=== PATIENT | male | born 1940 | race Caucasian/White ===

== ENCOUNTER → 2016-11-03 | Outpatient (REF) | payer MEDICARE, OTHER ==
[~2016-11-03] MED LIST: GEMF600T PO; MELA3TAB17 PO; METF1000 PO; MULTTAB4 PO; PRAD150C PO; RALT40TA PO; RAMI10CA PO; TAMS0.4C PO; TRUVTAB3 PO
[2016-11-03 14:18] LABS: ALBUMIN 4.2 GM/DL (3.2-5.2); ALKALINE PHOSPHATASE 73 U/L (45-117); ALT/SGPT 19 U/L (12-78); ANION GAP 7 MEQ/L (8-16); AST/SGOT 13 U/L (15-37); BLOOD UREA NITROGEN 21 MG/DL (7-18); CALCIUM LEVEL 9.7 MG/DL (8.8-10.2); CARBON DIOXIDE LEVEL 28 MEQ/L (21-32); CHLORIDE LEVEL 104 MEQ/L (98-107); CHOLESTEROL LEVEL 90 MG/DL (<200); CREATININE FOR GFR 1.41 MG/DL (0.70-1.30); GLUCOSE, FASTING 110 MG/DL (83-110); POTASSIUM SERUM 4.3 MEQ/L (3.5-5.1); SODIUM LEVEL 139 MEQ/L (136-145); TOTAL PROTEIN 7.7 GM/DL (6.4-8.2); TRIGLYCERIDES LEVEL 108 MG/DL (<150)
[2016-11-05 00:06] LABS: %CD3+CD4+CD8+ 5.6 % (Not Estab.); %CD3+CD4+CD8- 35.6 % (Not Estab.); %CD3+CD4-CD8+ 37.3 % (Not Estab.); %CD3+CD4-CD8- 0.5 % (Not Estab.); ABS CD3+CD4+CD8+ 84 /uL (Not Estab.); ABS CD3+CD4+CD8- 534 /uL (Not Estab.); ABS CD3+CD4-CD8+ 560 /uL (Not Estab.); ABS CD3+CD4-CD8- 8 /uL (Not Estab.); CD4/CD8 NYSDOH RATIO 0.95 (Not Estab.); Eosinophils 3 % (.); HCT 46.1 % (37.5-51.0); HGB 15.7 g/dL (12.6-17.7); Monocytes 8 % (.); Neutrophils 57 % (.); WBC 4.8 x10E3/uL (3.4-10.8)
== END ==
LOC: M LABDRAW1 12:56
PROVIDERS: ATTEND Internal Medicine Infectious Disease
DX: B20 Human immunodeficiency virus [HIV] disease (principal); E78.2 Mixed hyperlipidemia; E11.40 Type 2 diabetes mellitus with diabetic neuropathy, unspecified; K62.82 Dysplasia of anus; N40.1 Benign prostatic hyperplasia with lower urinary tract symptoms; I48.2 Chronic atrial fibrillation; R80.9 Proteinuria, unspecified; Z23 Encounter for immunization; Z79.84 Long term (current) use of oral hypoglycemic drugs; Z79.899 Other long term (current) drug therapy
CPT/HCPCS: 36415; 80053; 80061; 81001; 82043; 83036; 86360; 86480; 86780; 87491; 87536; 87591; 90471; 90733; G0463

== ENCOUNTER → 2016-12-20 | Outpatient (REF) | payer MEDICARE, OTHER | LOC: M SMT 13:19 | PROVIDERS: ATTEND Urology | DX: R30.0 Dysuria (principal) | CPT/HCPCS: 51798; 81001; 87086; G0463 ==

== ENCOUNTER → 2016-12-29 | Outpatient (CLI) | payer MEDICARE, OTHER ==
--- NOTE | 2016-12-29 10:59 | REP ---
CT LUMBAR SPINE WITHOUT CONTRAST: HISTORY: Back and right leg pain. A diffuse disc bulge with associated osteophyte formation is present at the L1-2 level. There is minimal compression of the thecal sac. The L1 nerves exit the neural foramina without compression. A diffuse disc bulge is present at the L2-3 level. There is minimal compression of the thecal sac. The L2 nerves exit the neural foramina without compression. A diffuse disc bulge is present at the L3-4 level. There is minimal compression of the thecal sac. There is hypertrophy of the posterior articulating facets. The L3 nerves exit the neural foramina without compression. A diffuse disc bulge and small right paracentral disc extrusion are present at the L4-5 level. There is inferior migration of disc material. There is minimal compression of the thecal sac and right L5 nerve as it exits the thecal sac. There is hypertrophy of the posterior articulating facets. There is compression of the right L4 nerve in the neural foramen. The left L4 nerve exits the neural foramen without compression. A diffuse disc bulge is present at the L5-S1 level. There is minimal compression of the thecal sac. There is hypertrophy of the posterior articulating facets. The L5 nerves exit the neural foramina without compression. The L1-2 and L4-5 intervertebral discs are decreased in height consistent with disc degeneration. There is an old compression fracture of the L1 vertebral body with minimal height loss. There is no subluxation. IMPRESSION: 1. Diffuse disc bulge with associated osteophyte formation at the L1-2 level with minimal thecal sac compression. 2. Diffuse disc bulges at the L2-3, L3-4 and L5-S1 levels with minimal thecal sac compression. 2. Diffuse disc bulge and small right paracentral disc extrusion at the L4-5 level with minimal compression of the thecal sac and right L5 nerve as it exits the thecal sac. There is compression of the right L5 nerve in the neural foramen. Signed by Tor Yuen MD 12/29/2016 11:19 A
== END ==
LOC: M RAD 10:18
PROVIDERS: ATTEND Physician Assistant Medical
DX: M51.26 Other intervertebral disc displacement, lumbar region (principal); M79.604 Pain in right leg; R20.2 Paresthesia of skin

== ENCOUNTER → 2017-03-08 | Outpatient (REF) | payer MEDICARE, OTHER ==
[2017-03-08 13:38] LABS: ALBUMIN/GLOBULIN RATIO 1.11 (1.00-1.93); BILIRUBIN,TOTAL 1.1 MG/DL (0.2-1.0); CALCIUM LEVEL 9.1 MG/DL (8.8-10.2); CREATININE FOR GFR 1.32 MG/DL (0.70-1.30); GLOMERULAR FILTRATION RATE 56.1 (>42); POTASSIUM SERUM 4.4 MEQ/L (3.5-5.1); TOTAL PROTEIN 7.6 GM/DL (6.4-8.2)
[2017-03-11 00:08] LABS: Eosinophils 3 % (.); HCT 45.1 % (37.5-51.0); HGB 15.1 g/dL (12.6-17.7); Monocytes 6 % (.); Neutrophils 61 % (.); WBC 4.7 x10E3/uL (3.4-10.8)
== END ==
LOC: M SFHCPLAZ 09:09
PROVIDERS: ATTEND Internal Medicine Infectious Disease
DX: B20 Human immunodeficiency virus [HIV] disease (principal); E11.40 Type 2 diabetes mellitus with diabetic neuropathy, unspecified
CPT/HCPCS: 80053; 80061; 83036; 86360; 87536; G0463

== ENCOUNTER → 2017-11-01 | Outpatient (REF) | payer MEDICARE, OTHER ==
[2017-11-01 14:32] LABS: ESTIMATED AVERAGE GLUCOSE 163 MG/DL (60-110); HEMOGLOBIN A1c 7.3 %
[2017-11-01 14:37] LABS: ALBUMIN 3.8 GM/DL (3.2-5.2); ALBUMIN/GLOBULIN RATIO 1.03 (1.00-1.93); ALKALINE PHOSPHATASE 79 U/L (45-117); ALT/SGPT 13 U/L (12-78); ANION GAP 9 MEQ/L (8-16); AST/SGOT 12 U/L (7-37); BILIRUBIN,TOTAL 1.2 MG/DL (0.2-1.0); BLOOD UREA NITROGEN 21 MG/DL (7-18); CALCIUM LEVEL 9.2 MG/DL (8.8-10.2); CARBON DIOXIDE LEVEL 26 MEQ/L (21-32); CHLORIDE LEVEL 105 MEQ/L (98-107); CHOLESTEROL LEVEL 93 MG/DL (<200); CHOLESTEROL RISK RATIO 2.735 (<5); CREATININE FOR GFR 1.31 MG/DL (0.70-1.30); GLOMERULAR FILTRATION RATE 56.5 (>42); GLUCOSE, FASTING 151 MG/DL (70-100); HDL CHOLESTEROL 34 MG/DL (>40); LDL CHOLESTEROL 32.8 MG/DL (<100); NON-HDL-C 59 MG/DL; POTASSIUM SERUM 4.4 MEQ/L (3.5-5.1); SODIUM LEVEL 140 MEQ/L (136-145); TOTAL PROTEIN 7.5 GM/DL (6.4-8.2); TRIGLYCERIDES LEVEL 131 MG/DL (<150)
[2017-11-01 16:32] LABS: APPEARANCE, URINE CLOUDY (CLEAR); BACTERIA, URINE AUTO 1+ (NEGATIVE); BILIRUBIN, URINE AUTO NEGATIVE (NEGATIVE); BLOOD, URINE BLOOD 2+ (NEGATIVE); COLOR, URINE YELLOW (YELLOW); GLUCOSE, URINE (UA) AUTO 1+ mg/dL (NEGATIVE); KETONE, URINE AUTO NEGATIVE (NEGATIVE); LEUKOCYTE ESTERASE, URINE AUTO 3+ (NEGATIVE); NITRITE, URINE AUTO NEGATIVE (NEGATIVE); PROTEIN, URINE AUTO 2+ mg/dL (NEGATIVE); RBC, URINE AUTO 15 /HPF (0-3); SPECIFIC GRAVITY URINE AUTO 1.018 (1.002-1.035); SQUAMOUS EPITHELIAL CELL UR AU 0 /HPF (0-6); UROBILINOGEN, URINE AUTO 0.2 mg/dL (0.0-2.0); WBC, URINE AUTO TNTC /HPF (0-3)
[2017-11-01 17:35] LABS: CHLAMYDIA DNA AMPLIFICATION NEGATIVE (NEGATIVE); GC DNA AMPLIFICATION NEGATIVE (NEGATIVE)
[2017-11-02 14:15] LABS: % CD8 Pos Lymph 45.2 % (12.0-35.5); %CD4 Pos Lymphs 37.6 % (30.8-58.5); ABS Eosinophils 0.2 x10E3/uL (0.0-0.4); ABS Lymphs 1.5 x10E3/uL (0.7-3.1); ABS Monocytes 0.5 x10E3/uL (0.1-0.9); ABS Neutophils 4.1 x10E3/uL (1.4-7.0); Abs CD4 Helper 564 /uL (359-1519); Abs CD8 Suppres 678 /uL (109-897); CD4/CD8 Ratio 0.83 (0.92-3.72); Eosinophils 3 % (Not Estab.); HCT 40.3 % (37.5-51.0); HGB 14.4 g/dL (13.0-17.7); Immature Grans 0 % (Not Estab.); Lymphocytes 24 % (Not Estab.); MCH 32.9 pg (26.6-33.0); MCHC 35.7 g/dL (31.5-35.7); MCV 92 fL (79-97); Monocytes 7 % (Not Estab.); Neutrophils 65 % (Not Estab.); Platelets 189 x10E3/uL (150-379); RBC 4.38 x10E6/uL (4.14-5.80); RDW 15.4 % (12.3-15.4); WBC 6.3 x10E3/uL (3.4-10.8)
[2017-11-03 14:13] LABS: HIV-1 RNA PCR QUANT 2 LC550285 <20 copies/mL (.)
== END ==
LOC: M SFHCPLAZ 10:44
DX: B20 Human immunodeficiency virus [HIV] disease (principal); E78.2 Mixed hyperlipidemia; E11.40 Type 2 diabetes mellitus with diabetic neuropathy, unspecified; N40.0 Benign prostatic hyperplasia without lower urinary tract symptoms
CPT/HCPCS: 80053

== ENCOUNTER 2017-11-03 15:38 | Emergency (ER) | payer MEDICARE, OTHER | END 2017-11-03 19:00 | disposition home or self-care (01) | LOC: M ED 15:38 | DX: K59.00 Constipation, unspecified (principal); R10.84 Generalized abdominal pain; I10 Essential (primary) hypertension; K21.9 Gastro-esophageal reflux disease without esophagitis; E11.9 Type 2 diabetes mellitus without complications; E78.9 Disorder of lipoprotein metabolism, unspecified; Z86.73 Personal history of transient ischemic attack (TIA), and cerebral infarction without residual deficits; B20 Human immunodeficiency virus [HIV] disease; I48.91 Unspecified atrial fibrillation; Z95.0 Presence of cardiac pacemaker; Z79.899 Other long term (current) drug therapy; Z79.01 Long term (current) use of anticoagulants; Z79.84 Long term (current) use of oral hypoglycemic drugs | CPT/HCPCS: 74019 ==

== ENCOUNTER → 2018-03-21 | Outpatient (REF) | payer MEDICARE, OTHER ==
[2018-03-21 11:18] LABS: APPEARANCE, URINE CLEAR (CLEAR); BACTERIA, URINE AUTO NEGATIVE (NEGATIVE); BILIRUBIN, URINE AUTO NEGATIVE (NEGATIVE); BLOOD, URINE BLOOD NEGATIVE (NEGATIVE); CALCIUM OXALATE CRYSTALS LARGE; COLOR, URINE YELLOW (YELLOW); GLUCOSE, URINE (UA) AUTO NEGATIVE (NEGATIVE); KETONE, URINE AUTO NEGATIVE (NEGATIVE); LEUKOCYTE ESTERASE, URINE AUTO 1+ (NEGATIVE); MUCUS, URINE SMALL (NEGATIVE); NITRITE, URINE AUTO NEGATIVE (NEGATIVE); PROTEIN, URINE AUTO NEGATIVE (NEGATIVE); RBC, URINE AUTO 2 /HPF (0-3); SPECIFIC GRAVITY URINE AUTO 1.017 (1.002-1.035); SQUAMOUS EPITHELIAL CELL UR AU 0 /HPF (0-6); UROBILINOGEN, URINE AUTO 0.2 mg/dL (0.0-2.0); WBC, URINE AUTO 7 /HPF (0-3)
[2018-03-21 12:11] LABS: ALBUMIN 4.2 GM/DL (3.2-5.2); ALBUMIN/GLOBULIN RATIO 1.17 (1.00-1.93); ALKALINE PHOSPHATASE 72 U/L (45-117); ALT/SGPT 25 U/L (12-78); ANION GAP 7 MEQ/L (8-16); AST/SGOT 16 U/L (7-37); BILIRUBIN,TOTAL 1.3 MG/DL (0.2-1.0); BLOOD UREA NITROGEN 18 MG/DL (7-18); CALCIUM LEVEL 9.9 MG/DL (8.8-10.2); CARBON DIOXIDE LEVEL 28 MEQ/L (21-32); CHLORIDE LEVEL 105 MEQ/L (98-107); CREATININE FOR GFR 1.46 MG/DL (0.70-1.30); GLOMERULAR FILTRATION RATE 49.8 (>42); GLUCOSE, FASTING 118 MG/DL (70-100); POTASSIUM SERUM 4.5 MEQ/L (3.5-5.1); PSA SCREENING 3.53 NG/ML (< 4.0); SODIUM LEVEL 140 MEQ/L (136-145); TOTAL PROTEIN 7.8 GM/DL (6.4-8.2)
[2018-03-21 12:33] LABS: MALB URINE SIEMENS 69.9 MG/L
[2018-03-21 12:42] LABS: MAU/CREAT RATIO 54.6 MCG/MG (0.0-30.0)
[2018-03-24 00:24] LABS: % CD8 Pos Lymph 44.9 % (12.0-35.5); ABS Eosinophils 0.1 x10E3/uL (0.0-0.4); ABS Lymphs 1.7 x10E3/uL (0.7-3.1); ABS Monocytes 0.3 x10E3/uL (0.1-0.9); ABS Neutophils 3.2 x10E3/uL (1.4-7.0); Abs CD4 Helper 680 /uL (359-1519); Abs CD8 Suppres 763 /uL (109-897); CD4/CD8 Ratio 0.89 (0.92-3.72); Eosinophils 2 % (Not Estab.); HCT 46.5 % (37.5-51.0); HGB 16.3 g/dL (13.0-17.7); HIV-1 RNA PCR QUANT 2 LC550285 <20 copies/mL (.); Immature Grans 1 % (Not Estab.); Lymphocytes 32 % (Not Estab.); MCH 32.3 pg (26.6-33.0); MCHC 35.1 g/dL (31.5-35.7); MCV 92 fL (79-97); Monocytes 5 % (Not Estab.); Neutrophils 59 % (Not Estab.); Platelets 166 x10E3/uL (150-379); RBC 5.04 x10E6/uL (4.14-5.80); RDW 15.1 % (12.3-15.4); WBC 5.3 x10E3/uL (3.4-10.8)
[2018-03-27 10:36] LABS: ESTIMATED AVERAGE GLUCOSE 157 MG/DL (60-110); HEMOGLOBIN A1c 7.1 %
== END ==
LOC: M SFHCPLAZ 09:20
DX: B20 Human immunodeficiency virus [HIV] disease (principal); E11.40 Type 2 diabetes mellitus with diabetic neuropathy, unspecified; N40.1 Benign prostatic hyperplasia with lower urinary tract symptoms
CPT/HCPCS: 80053

== ENCOUNTER → 2018-04-25 | Outpatient (CLI) | payer MEDICARE, OTHER | LOC: M LRY 12:48 | DX: S22.41XA Multiple fractures of ribs, right side, initial encounter for closed fracture (principal); I51.7 Cardiomegaly; R07.81 Pleurodynia; W10.9XXA Fall (on) (from) unspecified stairs and steps, initial encounter; Y92.9 Unspecified place or not applicable; Z95.0 Presence of cardiac pacemaker | CPT/HCPCS: 71100; G0463 ==

== ENCOUNTER → 2018-11-07 | Outpatient (REF) | payer MEDICARE, OTHER ==
[~2018-11-07] MED LIST changes: +GLYC2SUP PR; +MIRA3350 PO
[2018-11-07 17:11] LABS: ALBUMIN 3.9 GM/DL (3.2-5.2); BILIRUBIN,TOTAL 0.7 MG/DL (0.2-1.0); CHOLESTEROL RISK RATIO 2.823 (<5); CREATININE FOR GFR 1.39 MG/DL (0.70-1.30); GLOMERULAR FILTRATION RATE 52.6 (>42); POTASSIUM SERUM 4.3 MEQ/L (3.5-5.1); TOTAL PROTEIN 7.7 GM/DL (6.4-8.2)
[2018-11-07 17:47] LABS: APPEARANCE, URINE CLOUDY (CLEAR); BACTERIA, URINE AUTO NEGATIVE (NEGATIVE); BILIRUBIN, URINE AUTO NEGATIVE (NEGATIVE); BLOOD, URINE BLOOD 1+ (NEGATIVE); CALCIUM OXALATE CRYSTALS SMALL; COLOR, URINE YELLOW (YELLOW); GLUCOSE, URINE (UA) AUTO 2+ mg/dL (NEGATIVE); KETONE, URINE AUTO NEGATIVE (NEGATIVE); LEUKOCYTE ESTERASE, URINE AUTO 3+ (NEGATIVE); NITRITE, URINE AUTO NEGATIVE (NEGATIVE); PROTEIN, URINE AUTO 1+ mg/dL (NEGATIVE); RBC, URINE AUTO 92 /HPF (0-3); SPECIFIC GRAVITY URINE AUTO 1.021 (1.002-1.035); SQUAMOUS EPITHELIAL CELL UR AU 1 /HPF (0-6); UROBILINOGEN, URINE AUTO 0.2 mg/dL (0.0-2.0); WBC, URINE AUTO TNTC /HPF (0-3)
[2018-11-07 18:56] LABS: CHLAMYDIA DNA AMPLIFICATION NEGATIVE (NEGATIVE); GC DNA AMPLIFICATION NEGATIVE (NEGATIVE)
[2018-11-07 19:10] LABS: HEMOGLOBIN A1c 7.6 %
[2018-11-11 00:14] LABS: % CD8 Pos Lymph 43.2 % (12.0-35.5); ABS Eosinophils 0.4 x10E3/uL (0.0-0.4); ABS Lymphs 1.6 x10E3/uL (0.7-3.1); ABS Monocytes 0.3 x10E3/uL (0.1-0.9); ABS Neutophils 3.9 x10E3/uL (1.4-7.0); Abs CD4 Helper 672 /uL (359-1519); Abs CD8 Suppres 691 /uL (109-897); CD4/CD8 Ratio 0.97 (0.92-3.72); Eosinophils 7 % (Not Estab.); HGB 14.5 g/dL (13.0-17.7); HIV-1 RNA PCR QUANT 2 LC550285 <20 copies/mL (.); Immature Grans 1 % (Not Estab.); Lymphocytes 25 % (Not Estab.); MCH 32.4 pg (26.6-33.0); MCV 98 fL (79-97); Monocytes 6 % (Not Estab.); Neutrophils 61 % (Not Estab.); Platelets 223 x10E3/uL (150-450); RBC 4.47 x10E6/uL (4.14-5.80); RDW 15.3 % (12.3-15.4); WBC 6.2 x10E3/uL (3.4-10.8)
== END ==
LOC: M SFHCPLAZ 11:55
PROVIDERS: ATTEND Internal Medicine Infectious Disease
DX: B20 Human immunodeficiency virus [HIV] disease (principal); E11.40 Type 2 diabetes mellitus with diabetic neuropathy, unspecified; E78.2 Mixed hyperlipidemia
CPT/HCPCS: 80053; 80061; 81001; 83036; 86360; 86480; 87491; 87536; 87591; G0463

== ENCOUNTER → 2018-11-08 | Outpatient (CLI) | payer MEDICARE, OTHER ==
--- NOTE | 2018-11-08 16:07 | REP ---
Clinical: Acute abdominal pain. Constipation. Technique: Three supine views of the abdomen and pelvis. Findings: Mild fecal stasis cannot be excluded. No evidence for bowel obstruction or perforation. No organomegaly. Evidence for prior cholecystectomy. Skeletal structures demonstrate age-related degenerative changes. Impression: Cannot exclude mild fecal stasis/constipation. Electronically Signed by Lopez Chery MD 11/08/2018 03:58 P
== END ==
LOC: M LRY 15:30
PROVIDERS: ATTEND Nurse Practitioner Family
DX: R10.30 Lower abdominal pain, unspecified (principal)
CPT/HCPCS: 74018; G0463

== ENCOUNTER → 2018-11-10 | Outpatient (REF) | payer MEDICARE, OTHER ==
[2018-11-10 18:57] LABS: AMORPHOUS SEDIMENT SMALL (NEGATIVE); APPEARANCE, URINE TURBID (CLEAR); BACTERIA, URINE AUTO NEGATIVE (NEGATIVE); BILIRUBIN, URINE AUTO NEGATIVE (NEGATIVE); BLOOD, URINE BLOOD 1+ (NEGATIVE); CALCIUM OXALATE CRYSTALS LARGE; COLOR, URINE AMBER (YELLOW); GLUCOSE, URINE (UA) AUTO 1+ mg/dL (NEGATIVE); KETONE, URINE AUTO NEGATIVE (NEGATIVE); LEUKOCYTE ESTERASE, URINE AUTO 3+ (NEGATIVE); MUCUS, URINE SMALL (NEGATIVE); NITRITE, URINE AUTO NEGATIVE (NEGATIVE); PROTEIN, URINE AUTO 2+ mg/dL (NEGATIVE); RBC, URINE AUTO 58 /HPF (0-3); SPECIFIC GRAVITY URINE AUTO 1.023 (1.002-1.035); SQUAMOUS EPITHELIAL CELL UR AU 0 /HPF (0-6); UROBILINOGEN, URINE AUTO 0.2 mg/dL (0.0-2.0); WBC, URINE AUTO TNTC /HPF (0-3)
== END ==
LOC: M SFHCPLAZ 12:10
PROVIDERS: ATTEND Internal Medicine Infectious Disease
DX: N39.0 Urinary tract infection, site not specified (principal)

== ENCOUNTER → 2019-03-13 | Outpatient (REF) | payer MEDICARE, OTHER ==
[2019-03-13 12:13] LABS: APPEARANCE, URINE CLEAR (CLEAR); BACTERIA, URINE AUTO NEGATIVE (NEGATIVE); BILIRUBIN, URINE AUTO NEGATIVE (NEGATIVE); BLOOD, URINE BLOOD NEGATIVE (NEGATIVE); CALCIUM OXALATE CRYSTALS LARGE; COLOR, URINE YELLOW (YELLOW); GLUCOSE, URINE (UA) AUTO 1+ mg/dL (NEGATIVE); KETONE, URINE AUTO NEGATIVE (NEGATIVE); LEUKOCYTE ESTERASE, URINE AUTO TRACE (NEGATIVE); NITRITE, URINE AUTO NEGATIVE (NEGATIVE); PROTEIN, URINE AUTO NEGATIVE (NEGATIVE); RBC, URINE AUTO 1 /HPF (0-3); SPECIFIC GRAVITY URINE AUTO 1.013 (1.002-1.035); SQUAMOUS EPITHELIAL CELL UR AU 0 /HPF (0-6); UROBILINOGEN, URINE AUTO 0.2 mg/dL (0.0-2.0); WBC, URINE AUTO 3 /HPF (0-3)
[2019-03-13 12:49] LABS: ALBUMIN 3.8 GM/DL (3.2-5.2); BILIRUBIN,TOTAL 1.3 MG/DL (0.2-1.0); CALCIUM LEVEL 9.6 MG/DL (8.8-10.2); CHOLESTEROL RISK RATIO 2.705 (<5); CREATININE FOR GFR 1.31 MG/DL (0.70-1.30); GLOMERULAR FILTRATION RATE 56.3 (>42); POTASSIUM SERUM 4.1 MEQ/L (3.5-5.1); TOTAL PROTEIN 7.3 GM/DL (6.4-8.2)
[2019-03-13 12:52] LABS: CREATININE, URINE 77.2 MG/DL; MALB URINE SIEMENS 80.1 MG/L; MAU/CREAT RATIO 103.7 MCG/MG (0.0-30.0)
== END ==
LOC: M SFHCPLAZ 09:13
PROVIDERS: ATTEND Internal Medicine Infectious Disease
DX: B20 Human immunodeficiency virus [HIV] disease (principal); E11.40 Type 2 diabetes mellitus with diabetic neuropathy, unspecified; E78.2 Mixed hyperlipidemia; N40.1 Benign prostatic hyperplasia with lower urinary tract symptoms
CPT/HCPCS: 36415; 80053; 80061; 81001; 82043; 83036; 86360; 87536; G0103

== ENCOUNTER → 2019-05-03 | Outpatient (REF) | payer MEDICARE, OTHER ==
[2019-05-03 11:50] LABS: APPEARANCE, URINE CLOUDY (CLEAR); BACTERIA, URINE AUTO 1+ (NEGATIVE); BILIRUBIN, URINE AUTO NEGATIVE (NEGATIVE); BLOOD, URINE BLOOD 1+ (NEGATIVE); CALCIUM OXALATE CRYSTALS SMALL; COLOR, URINE YELLOW (YELLOW); GLUCOSE, URINE (UA) AUTO 1+ mg/dL (NEGATIVE); KETONE, URINE AUTO NEGATIVE (NEGATIVE); LEUKOCYTE ESTERASE, URINE AUTO 3+ (NEGATIVE); NITRITE, URINE AUTO NEGATIVE (NEGATIVE); PROTEIN, URINE AUTO 2+ mg/dL (NEGATIVE); RBC, URINE AUTO 24 /HPF (0-3); RENAL EPITHELIAL CELLS 1 /HPF; SQUAMOUS EPITHELIAL CELL UR AU 0 /HPF (0-6); TRANSITIONAL EPITHELIAL AUTO 1 /HPF; UROBILINOGEN, URINE AUTO 0.2 mg/dL (0.0-2.0); WBC, URINE AUTO TNTC /HPF (0-3)
[2019-05-03 12:58] LABS: ALBUMIN 3.6 GM/DL (3.2-5.2); BILIRUBIN,TOTAL 0.9 MG/DL (0.2-1.0); CALCIUM LEVEL 9.4 MG/DL (8.8-10.2); CREATININE FOR GFR 1.51 MG/DL (0.70-1.30); GLOMERULAR FILTRATION RATE 47.8 (>42); POTASSIUM SERUM 4.3 MEQ/L (3.5-5.1); TOTAL PROTEIN 7.6 GM/DL (6.4-8.2)
[2019-05-07 14:07] LABS: HIV-1 RNA PCR QUANT 2 LC550285 <20 copies/mL (.)
== END ==
LOC: M SFHCPLAZ 08:04
PROVIDERS: ATTEND Internal Medicine Infectious Disease
DX: I10 Essential (primary) hypertension (principal); B20 Human immunodeficiency virus [HIV] disease; R30.0 Dysuria
CPT/HCPCS: 36415; 80053; 81001; 87086; 87536; G0463

== ENCOUNTER → 2019-12-03 | Outpatient (CLI) | payer MEDICARE, OTHER ==
--- NOTE | 2019-12-03 11:26 | REPPI ---
Left wrist series: Two views. History: Swelling left wrist. Findings: AP and lateral views of the left wrist demonstrate a negative ulnar variance. There is mild osteoarthritic spurring at the first carpometacarpal articulation. Overall mineralization pattern is normal. No bony erosive changes seen. 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 Negative ulnar variance. No acute abnormality. Electronically Signed by Chan Marsh MD 12/03/2019 09:17 A
== END ==
LOC: M PLAIMG 08:48
PROVIDERS: ATTEND Internal Medicine Infectious Disease
DX: M19.032 Primary osteoarthritis, left wrist (principal); M25.432 Effusion, left wrist; B20 Human immunodeficiency virus [HIV] disease; E11.40 Type 2 diabetes mellitus with diabetic neuropathy, unspecified; R30.0 Dysuria; N40.1 Benign prostatic hyperplasia with lower urinary tract symptoms
CPT/HCPCS: 36415; 73100; 80053; 80061; 81001; 82043; 83036; 86360; 87086; 87491; 87536; 87591; G0103; G0463

== ENCOUNTER → 2019-12-03 | Outpatient (REF) | payer MEDICARE, OTHER ==
[2019-12-03 12:22] LABS: APPEARANCE, URINE HAZY (CLEAR); BACTERIA, URINE AUTO NEGATIVE (NEGATIVE); BILIRUBIN, URINE AUTO NEGATIVE (NEGATIVE); BLOOD, URINE BLOOD NEGATIVE (NEGATIVE); CALCIUM OXALATE CRYSTALS SMALL; COLOR, URINE YELLOW (YELLOW); GLUCOSE, URINE (UA) AUTO 1+ mg/dL (NEGATIVE); KETONE, URINE AUTO NEGATIVE (NEGATIVE); LEUKOCYTE ESTERASE, URINE AUTO 1+ (NEGATIVE); MUCUS, URINE SMALL (NEGATIVE); NITRITE, URINE AUTO NEGATIVE (NEGATIVE); PROTEIN, URINE AUTO 1+ mg/dL (NEGATIVE); RBC, URINE AUTO 28 /HPF (0-3); SPECIFIC GRAVITY URINE AUTO 1.021 (1.002-1.035); SQUAMOUS EPITHELIAL CELL UR AU 0 /HPF (0-6); UROBILINOGEN, URINE AUTO 0.2 mg/dL (0.0-2.0); WBC, URINE AUTO 9 /HPF (0-3)
[2019-12-03 12:42] LABS: MAU/CREAT RATIO 80.8 MCG/MG (0.0-30.0)
[2019-12-03 12:47] LABS: BILIRUBIN,TOTAL 1.1 MG/DL (0.2-1.0); CALCIUM LEVEL 8.8 MG/DL (8.8-10.2); CHOLESTEROL RISK RATIO 3.781 (<5); CREATININE FOR GFR 1.27 MG/DL (0.70-1.30); GLOMERULAR FILTRATION RATE 58.2 (>42); TOTAL PROTEIN 7.6 GM/DL (6.4-8.2)
[2019-12-03 13:21] LABS: CHLAMYDIA DNA AMPLIFICATION NEGATIVE (NEGATIVE); GC DNA AMPLIFICATION NEGATIVE (NEGATIVE)
[2019-12-03 15:15] LABS: HEMOGLOBIN A1c 7.8 %
[2019-12-06 01:07] LABS: % CD8 Pos Lymph 43.6 % (12.0-35.5); %CD4 Pos Lymphs 40.8 % (30.8-58.5); ABS Eosinophils 0.2 x10E3/uL (0.0-0.4); ABS Monocytes 0.5 x10E3/uL (0.1-0.9); ABS Neutophils 3.6 x10E3/uL (1.4-7.0); Abs CD4 Helper 816 /uL (359-1519); Abs CD8 Suppres 872 /uL (109-897); CD4/CD8 Ratio 0.94 (0.92-3.72); Eosinophils 3 % (Not Estab.); HCT 44.7 % (37.5-51.0); HGB 15.5 g/dL (13.0-17.7); HIV-1 RNA PCR QUANT 2 LC550285 <20 copies/mL (.); Immature Grans 1 % (Not Estab.); Lymphocytes 32 % (Not Estab.); MCH 33.2 pg (26.6-33.0); MCHC 34.7 g/dL (31.5-35.7); MCV 96 fL (79-97); Monocytes 8 % (Not Estab.); Neutrophils 55 % (Not Estab.); Platelets 179 x10E3/uL (150-450); RBC 4.67 x10E6/uL (4.14-5.80); WBC 6.3 x10E3/uL (3.4-10.8)
== END ==
LOC: M SFHCPLAZ 08:44
PROVIDERS: ATTEND Internal Medicine Infectious Disease
DX: B20 Human immunodeficiency virus [HIV] disease (principal); E11.40 Type 2 diabetes mellitus with diabetic neuropathy, unspecified; R30.0 Dysuria; N40.1 Benign prostatic hyperplasia with lower urinary tract symptoms
CPT/HCPCS: 36415; 80053; 80061; 81001; 82043; 83036; 86360; 87086; 87491; 87536; 87591; G0103

== ENCOUNTER → 2020-03-27 | Outpatient (CLI) | payer MEDICARE, OTHER ==
[2020-03-27 14:07] LABS: HEMATOCRIT 43.3 % (42.0-52.0); HEMOGLOBIN 13.7 g/dl (13.5-17.5); MEAN CORPUSCULAR HEMOGLOBIN 31.1 pg (27.0-33.0); MEAN CORPUSCULAR HGB CONC 31.6 g/dl (32.0-36.5); MEAN CORPUSCULAR VOLUME 98.4 fl (80.0-96.0); PLATELET COUNT, AUTOMATED 125 10^3/uL (150-450); WHITE BLOOD COUNT 5.5 10^3/uL (4.0-10.0)
[2020-03-27 14:36] LABS: CALCIUM LEVEL 9.2 MG/DL (8.8-10.2); CREATININE FOR GFR 1.28 MG/DL (0.70-1.30); GLOMERULAR FILTRATION RATE 57.7 (>42); MAGNESIUM LEVEL 1.6 MG/DL (1.8-2.4); POTASSIUM SERUM 4.2 MEQ/L (3.5-5.1)
== END ==
LOC: M PLALAB 10:16
PROVIDERS: ATTEND Physician Assistant
DX: I48.21 Permanent atrial fibrillation (principal); I50.32 Chronic diastolic (congestive) heart failure

== ENCOUNTER → 2020-03-27 | Outpatient (REF) | payer MEDICARE, OTHER ==
[2020-03-27 14:31] LABS: ALBUMIN 3.9 GM/DL (3.2-5.2); BILIRUBIN,TOTAL 1.5 MG/DL (0.2-1.0); CALCIUM LEVEL 9.1 MG/DL (8.8-10.2); CHOLESTEROL RISK RATIO 2.454 (<5); CREATININE FOR GFR 1.31 MG/DL (0.70-1.30); GLOMERULAR FILTRATION RATE 56.2 (>42); POTASSIUM SERUM 4.3 MEQ/L (3.5-5.1); TOTAL PROTEIN 7.2 GM/DL (6.4-8.2)
[2020-03-27 14:38] LABS: HEMOGLOBIN A1c 7.3 %
[2020-03-27 15:00] LABS: MAU/CREAT RATIO 256.2 MCG/MG (0.0-30.0)
[2020-03-29 02:07] LABS: % CD8 Pos Lymph 42.9 % (12.0-35.5); %CD4 Pos Lymphs 43.1 % (30.8-58.5); ABS Eosinophils 0.1 x10E3/uL (0.0-0.4); ABS Monocytes 0.5 x10E3/uL (0.1-0.9); ABS Neutophils 4.3 x10E3/uL (1.4-7.0); Abs CD4 Helper 431 /uL (359-1519); Abs CD8 Suppres 429 /uL (109-897); Eosinophils 2 % (Not Estab.); HCT 41.4 % (37.5-51.0); HGB 14.1 g/dL (13.0-17.7); HIV-1 RNA PCR QUANT 2 LC550285 <20 copies/mL (.); Immature Grans 1 % (Not Estab.); Lymphocytes 17 % (Not Estab.); MCH 31.7 pg (26.6-33.0); MCHC 34.1 g/dL (31.5-35.7); MCV 93 fL (79-97); Monocytes 8 % (Not Estab.); Neutrophils 72 % (Not Estab.); Platelets 119 x10E3/uL (150-450); RBC 4.45 x10E6/uL (4.14-5.80); RDW 13.4 % (11.6-15.4); WBC 5.8 x10E3/uL (3.4-10.8)
== END ==
LOC: M SFHCPLAZ 10:16
PROVIDERS: ATTEND Internal Medicine Infectious Disease
DX: E11.40 Type 2 diabetes mellitus with diabetic neuropathy, unspecified (principal); B20 Human immunodeficiency virus [HIV] disease; E78.2 Mixed hyperlipidemia; Z23 Encounter for immunization
CPT/HCPCS: 36415; 80053; 80061; 82043; 83036; 83735; 83880; 85027; 86360; 87536; 90682; G0008; G0463

== ENCOUNTER → 2020-10-30 | Outpatient (REF) | payer MEDICARE, OTHER ==
[2020-10-30 11:21] LABS: HEMOGLOBIN A1c 7.3 %
[2020-10-30 11:28] LABS: ALBUMIN 4.1 GM/DL (3.2-5.2); BILIRUBIN,TOTAL 0.9 MG/DL (0.2-1.0); CALCIUM LEVEL 9.3 MG/DL (8.8-10.2); CHOLESTEROL RISK RATIO 2.871 (<5); CREATININE FOR GFR 1.63 MG/DL (0.70-1.30); GLOMERULAR FILTRATION RATE 43.6 (>35); POTASSIUM SERUM 3.8 MEQ/L (3.5-5.1); TOTAL PROTEIN 7.6 GM/DL (6.4-8.2)
[2020-10-30 11:39] LABS: MALB URINE SIEMENS 55.5 MG/L; MAU/CREAT RATIO 50.9 MCG/MG (0.0-30.0)
[2020-11-01 15:07] LABS: % CD8 Pos Lymph 44.2 % (12.0-35.5); %CD4 Pos Lymphs 40.4 % (30.8-58.5); ABS Basophils 0.1 x10E3/uL (0.0-0.2); ABS Eosinophils 0.1 x10E3/uL (0.0-0.4); ABS Lymphs 1.5 x10E3/uL (0.7-3.1); ABS Monocytes 0.5 x10E3/uL (0.1-0.9); Abs CD4 Helper 606 /uL (359-1519); Abs CD8 Suppres 663 /uL (109-897); CD4/CD8 Ratio 0.91 (0.92-3.72); Eosinophils 2 % (Not Estab.); HCT 42.8 % (37.5-51.0); HGB 14.8 g/dL (13.0-17.7); HIV-1 RNA PCR QUANT 2 LC550285 30 copies/mL (.); HIV-1 RNA PCR QUANT 3 LC550285 1.477 (.); Immature Grans 0 % (Not Estab.); Lymphocytes 25 % (Not Estab.); MCH 33.6 pg (26.6-33.0); MCHC 34.6 g/dL (31.5-35.7); MCV 97 fL (79-97); Monocytes 8 % (Not Estab.); Neutrophils 64 % (Not Estab.); Platelets 160 x10E3/uL (150-450); RDW 13.4 % (11.6-15.4); WBC 6.2 x10E3/uL (3.4-10.8)
== END ==
LOC: M SFHCPLAZ 08:33
PROVIDERS: ATTEND Internal Medicine Infectious Disease
DX: B20 Human immunodeficiency virus [HIV] disease (principal); E11.40 Type 2 diabetes mellitus with diabetic neuropathy, unspecified; E78.2 Mixed hyperlipidemia
CPT/HCPCS: 36415; 80053; 80061; 82043; 83036; 86360; 87536; G0463

== ENCOUNTER → 2020-12-24 | Outpatient (CLI) | payer MEDICARE, OTHER ==
[2020-12-24 11:56] LABS: CALCIUM LEVEL 9.1 MG/DL (8.8-10.2); CREATININE FOR GFR 1.24 MG/DL (0.70-1.30); GLOMERULAR FILTRATION RATE 59.7 (>35); MAGNESIUM LEVEL 1.9 MG/DL (1.8-2.4)
== END ==
LOC: M LAB 09:53
PROVIDERS: ATTEND Physician Assistant
DX: I50.32 Chronic diastolic (congestive) heart failure (principal); I48.21 Permanent atrial fibrillation

== ENCOUNTER → 2021-03-11 | Outpatient (CLI) | payer MEDICARE, OTHER ==
[2021-03-11 14:22] LABS: ALBUMIN 4.1 GM/DL (3.2-5.2); BILIRUBIN,TOTAL 1.1 MG/DL (0.2-1.0); CALCIUM LEVEL 9.4 MG/DL (8.8-10.2); CHOLESTEROL RISK RATIO 2.628 (<5); CREATININE FOR GFR 1.36 MG/DL (0.70-1.30); GLOMERULAR FILTRATION RATE 53.7 (>35); POTASSIUM SERUM 4.6 MEQ/L (3.5-5.1); TOTAL PROTEIN 7.7 GM/DL (6.4-8.2)
[2021-03-11 14:40] LABS: CREATININE, URINE 55.1 MG/DL; MALB URINE SIEMENS 96.2 MG/L; MAU/CREAT RATIO 174.5 MCG/MG (0.0-30.0)
[2021-03-11 14:52] LABS: HEMOGLOBIN A1c 7.7 %
== END ==
LOC: M PLALAB 10:31
PROVIDERS: ATTEND Nurse Practitioner Family
DX: E11.40 Type 2 diabetes mellitus with diabetic neuropathy, unspecified (principal); E78.2 Mixed hyperlipidemia

== ENCOUNTER → 2021-04-02 | Outpatient (CLI) | payer MEDICARE, OTHER ==
--- NOTE | 2021-04-02 12:07 | REP ---
INDICATION: OTHER SPONDYLOSIS WITH MYELOPATHY, SITE UNSPECIFIED. COMPARISON: None. TECHNIQUE: Five views FINDINGS: There is universal moderate disc space narrowing at L4-5 with moderate posterior disc space narrowing at all other levels. There is anterior lipping at all levels. Vertebral body height and alignment is within normal limits. There is no evidence of spondylolysis or spondylolisthesis. Degenerative facet joint changes are present at every level bilaterally. There is marginal osteophytosis bilaterally at all levels. IMPRESSION: Chronic changes as described above. <Electronically signed by Boone Cole > 04/02/21 [id number]
== END ==
LOC: M PLAIMG 08:47
PROVIDERS: ATTEND Internal Medicine Infectious Disease
DX: M25.78 Osteophyte, vertebrae (principal); M47.10 Other spondylosis with myelopathy, site unspecified; Z23 Encounter for immunization
CPT/HCPCS: 72110; 90682; G0008; G0463

== ENCOUNTER → 2021-04-08 | Outpatient (CLI) | payer MEDICARE, OTHER ==
[2021-04-08 11:50] LABS: ALBUMIN 3.7 GM/DL (3.2-5.2); BILIRUBIN,TOTAL 0.8 MG/DL (0.2-1.0); CALCIUM LEVEL 10.4 MG/DL (8.8-10.2); CREATININE FOR GFR 1.37 MG/DL (0.70-1.30); GLOMERULAR FILTRATION RATE 53.2 (>35); POTASSIUM SERUM 4.3 MEQ/L (3.5-5.1); TOTAL PROTEIN 7.4 GM/DL (6.4-8.2)
[2021-04-10 12:11] LABS: % CD8 Pos Lymph 47.1 % (12.0-35.5); %CD4 Pos Lymphs 41.6 % (30.8-58.5); ABS Eosinophils 0.1 x10E3/uL (0.0-0.4); ABS Monocytes 0.4 x10E3/uL (0.1-0.9); ABS Neutophils 3.7 x10E3/uL (1.4-7.0); Abs CD4 Helper 416 /uL (359-1519); Abs CD8 Suppres 471 /uL (109-897); CD4/CD8 Ratio 0.88 (0.92-3.72); Eosinophils 3 % (Not Estab.); HCT 39.3 % (37.5-51.0); HGB 13.5 g/dL (13.0-17.7); HIV-1 RNA PCR QUANT 2 LC550285 <20 copies/mL (.); Immature Grans 0 % (Not Estab.); Lymphocytes 19 % (Not Estab.); MCH 31.9 pg (26.6-33.0); MCHC 34.4 g/dL (31.5-35.7); MCV 93 fL (79-97); Monocytes 7 % (Not Estab.); Neutrophils 70 % (Not Estab.); Platelets 149 x10E3/uL (150-450); RBC 4.23 x10E6/uL (4.14-5.80); RDW 14.5 % (11.6-15.4); WBC 5.3 x10E3/uL (3.4-10.8)
== END ==
LOC: M PLALAB 09:02
PROVIDERS: ATTEND Internal Medicine Infectious Disease
DX: B20 Human immunodeficiency virus [HIV] disease (principal)